=== PATIENT | female | born 1960 | race Caucasian/White ===

== ENCOUNTER → 2020-06-26 | Day surgery (SDC) | payer BC ==
[2020-06-26 07:53] VITALS: BP 138/90; PULSE 93; RESP 16; TEMP 98.7
--- NOTE | 2020-06-26 13:05 | MM ---
Discontinued stereotactic core biopsy right breast HISTORY: Right breast density Multiple unsuccessful attempts were made at localizing the vague density in question within the right breast. This was discussed with the patient and stereotactic core biopsy was discontinued. Recommend ation is for six-month follow-up mammography of the right breast. IMPRESSION: Discontinued stereotactic core biopsy right breast Recommendation: 6 month follow-up mammography right breast
--- NOTE | 2020-06-28 08:54 | CDI ---
Date: 06.28.20 CDS/Pediatrician Managing Partner Name: Amanda Cole Phone: If any questions, call Maria E Cespedes Real Estate Investor at [phone] Patient Name: Nuria Navas Admit Date 06.26.20 Discharge Date: 06.26.20 ATTENTION: The [facility] Coding Staff appreciate your assistance in clarifying documentation. Please respond to the clarification below the line at the bottom and electronically sign. The [facility] Coding staff will review the response and follow-up if needed. Please note: Queries are made part of the Legal Health Record. If you have any questions, please contact the Real Estate Investor. Dear Dr. Pace In order to code to the greatest specificity and for the greatest reimbursement I need the following information: You have documented multiple unsuccessful attempts were made at localizing the vague density. What means were utilized to attempt the localization of the density? Thank you for your kind consideration. MTDD
--- NOTE | 2020-07-03 14:21 | CDI ---
Date: 07.03.20 CDS/Pest Control Service Representative Name: Amanda Cole Phone: If any questions, call Maria E Cespedes [employer] Manager at [phone] Patient Name: Nuria Navas Admit Date 06.26.20 Discharge Date: 06.26.20 ATTENTION: The [facility] Coding Staff appreciate your assistance in clarifying documentation. Please respond to the clarification below the line at the bottom and electronically sign. The [facility] Coding staff will review the response and follow-up if needed. Please note: Queries are made part of the Legal Health Record. If you have any questions, please contact the [employer] Manager. Dear Dr. Pace In order to code to the greatest specificity and for the greatest reimbursement I need the following information: You have documented multiple unsuccessful attempts were made at localizing the vague density. What means were utilized to attempt the localization of the density? Thank you for your kind consideration. MTDD
--- NOTE | 2020-07-11 14:10 | CDI ---
Date: 07.11.20 CDS/Steel Wheel Engraver Name: Amanda Cole Phone: If any questions, call Maria E Cespedes [employer]p Of [employer] Marketing at [phone] Patient Name: Nuria Navas Admit Date 06.26.20 Discharge Date: 06.26.20 ATTENTION: The [facility] Coding Staff appreciate your assistance in clarifying documentation. Please respond to the clarification below the line at the bottom and electronically sign. The [facility] Coding staff will review the response and follow-up if needed. Please note: Queries are made part of the Legal Health Record. If you have any questions, please contact the Vp Of Digital Marketing. Dear Dr. Pace In order to code to the greatest specificity and for the greatest reimbursement I need the following information: You have documented multiple unsuccessful attempts were made to localizing the vague density. What means were utilized to attempt the localization of the density? This information is needed to charge the correct procedure. Thank you for your kind consideration. MTDD
== END ==
LOC: RADMAMWWP 07:36
PROVIDERS: ATTEND Family Medicine
DX: R92.8 Other abnormal and inconclusive findings on diagnostic imaging of breast (principal); Z53.9 Procedure and treatment not carried out, unspecified reason

== ENCOUNTER → 2021-01-09 | Outpatient (CLI) | payer BC ==
--- NOTE | 2021-01-09 11:23 | MM ---
Reason for exam: follow-up at short interval from prior study. Last mammogram was performed 7 months ago. History: Patient is postmenopausal. Family history of breast cancer in sister at age 58 and breast cancer in maternal aunt. MG discontinued stereo core RT of the right breast, June 26, 2020. Took hormonal contraceptives beginning at age 21. Physical Findings: Nurse did not find any significant physical abnormalities on exam. MG 3D Diag Mammo W/Cad RT CC and MLO view(s) were taken of the right breast. Prior study comparison: June 08, 2020, mammogram. February 10, 2020, mammogram. There are scattered fibroglandular densities. There is chronic nodularity in the right breast. There is no new dominant lesion. These results were verbally communicated with the patient and result sheet given to the patient on 01/09/21. ASSESSMENT: Benign, BI-RAD 2 RECOMMENDATION: Routine screening mammogram of both breasts in 1 month. Back on schedule for January 2021.
--- NOTE | 2021-01-09 12:47 | BD ---
EXAMINATION TYPE: Axial Bone Density DATE OF EXAM: 01/09/2021 COMPARISON: NONE CLINICAL HISTORY: Postmenopausal female Height: 65 Weight: 165.7 FRAX RISK QUESTIONS: Alcohol (3 or more units per day): no Family History (Parent hip fracture): no Glucocorticoids (More than 3mos): no (Ex: prednisone, prednisolone, methylprednisolone, dexamethasone, and hydrocortisone). History of Fracture in Adulthood: no Secondary Osteoporosis: 1. Type 1 Diabetes: no 2. Hyperthyroidism: no 3. Menopause before 45: no 4. Malnutrition: no 5. Chronic liver disease: no Rheumatoid Arthritis: no Current Tobacco Use: no RISK FACTORS HISTORY OF: Surgery to Spine/Hip(right/left)/Wrist (right/left): no Family History of Osteoporosis: yes Active: yes Diet low in dairy products/other sources of calcium: yes Postmenopausal woman: 52 Lost more than 2 inches in height since high school: no MEDICATIONS: flovent Additional History: EXAM MEASUREMENTS: Bone mineral densitometry was performed using the [employer] System. Bone mineral density as measured about the Lumbar spine is: ----- L1-L4(G/cm2): 1.152 T Score Values are as follows: ----- L2: -0.2 ----- L3: -0.1 ----- L4: -0.7 ----- L1-L4: -0.2 Bone mineral density : baseline Bone mineral density about the R hip (g/cm2): 0.859 Bone mineral density about the L hip (g/cm2): 0.905 T Score values are as follows: -----R Neck: -1.3 -----L Neck: -1.0 -----R Total: -1.1 -----L Total: -1.1 Bone mineral density : baseline IMPRESSION: Osteopenia (T Score between -2.5 and -1). There is slightly increased risk of fracture and the patient may be considered for treatment. Re-Screen 2-5 years. NOTE: T-SCORE=SD OF THE YOUNG ADULT MEAN.
== END | disposition home or self-care (01) ==
LOC: RADMAMWWP 08:24
PROVIDERS: ATTEND Family Medicine
DX: R92.8 Other abnormal and inconclusive findings on diagnostic imaging of breast (principal); M85.80 Other specified disorders of bone density and structure, unspecified site
CPT/HCPCS: 77061; 77065; 77080

== ENCOUNTER → 2021-04-12 | Outpatient (CLI) | payer BC ==
--- NOTE | 2021-04-16 10:50 | MM ---
Reason for exam: screening (asymptomatic). Last mammogram was performed 3 months ago. History: Patient is postmenopausal. Family history of breast cancer in sister at age 58 and breast cancer in maternal aunt. MG discontinued stereo core RT of the right breast, June 26, 2020. Took hormonal contraceptives for 10 years beginning at age 21. Physical Findings: A clinical breast exam by your physician is recommended on an annual basis and results should be correlated with mammographic findings. MG Screening Mammo w CAD Bilateral CC and MLO view(s) were taken. Prior study comparison: January 09, 2021, right breast MG 3d diag mammo w/cad RT. June 08, 2020, mammogram. There are scattered fibroglandular densities. There is chronic nodularity bilaterally. There is no discrete abnormality. ASSESSMENT: Benign, BI-RAD 2 RECOMMENDATION: Routine screening mammogram of both breasts in 1 year.
== END | disposition home or self-care (01) ==
LOC: RADMAMWWP 16:04
PROVIDERS: ATTEND Family Medicine
DX: Z12.31 Encounter for screening mammogram for malignant neoplasm of breast (principal)
CPT/HCPCS: 77067